=== PATIENT | male | born 1985 | race Asian ===

== ENCOUNTER 2018-04-01 10:38 | Day surgery (SDC) | payer OTHER ==
[2018-04-01 11:27] VITALS: BMI 31.4
--- NOTE | 2018-04-01 11:53 | PDOC ---
History of Present Illness - General Chief Complaint: Dialysis Shunt Problem Stated Complaint: POSSIBLE BLOOD CLOT FROM THE FISHLER Time Seen by Provider: 04/01/18 11:51 History Source: Patient Exam Limitations: No Limitations - History of Present Illness Initial Comments: 04/01/18 11:52 33YOM with h/o ESRD on HD (since 2013, now T//Sun, no missed treatments), AV fistula placement 5 years ago, right forearm angioplasty and AV graft placement , IDDM, HTN, HLD, gout, anemia, who p/w painful right forearm AV fistula since it was accessed on Sunday for his normal dialysis, acutely worsened last night and now with right 4th and 5th finger tingling. He states at the HD clinic , they had to use four different needles to access it because they kept becoming clogged with blood clot, and he was told the AV fistula may be clotted off and need a procedure. He was going to follow up with Dr. Watson today and was instructed to come into the ED for this. He notes only increased pain overlying the right forearm AV fistula site, no warmth/swelling/redness, no f/c/ n/v/d/c, chest pain, SOB, abdominal pain, headache, lightheadedness, vertigo, or other symptoms. Past History - Past Medical History Allergies/Adverse Reactions: Allergies Allergy/AdvReac Type Severity Reaction Status Date / Time No Known Allergies Allergy Verified 11/02/14 07:35 Home Medications: Ambulatory Orders Insulin Aspart [Novolog] unit SQ TID 06/30/13 Aspirin [ASA -] 81 mg PO DAILY #30 tab.chew 07/03/13 Insulin (Levemir) [Levemir Flexpen -] 6 units SQ HS #1 pen 07/03/13 Nifedipine [Procardia Xl] 60 mg PO BID 12/23/13 Losartan Potassium 50 mg PO HS 08/23/14 Metoprolol Succinate [Toprol XL -] 50 mg PO BID 08/23/14 Anemia: Yes Asthma: No Cancer: No Cardiac Disorders: No CVA: No COPD: No CHF: No Dementia: No Diabetes: Yes Dialysis: Yes (m,w,f) GI Disorders: No Disorders: No HTN: Yes Hypercholesterolemia: Yes Liver Disease: No Seizures: No Thyroid Disease: No - Surgical History Abdominal Surgery: No Appendectomy: No Cardiac Surgery: No Cholecystectomy: No Lung Surgery: No Neurologic Surgery: No Orthopedic Surgery: No - Family Disease History Family Disease History: Diabetes: Father (cva), Heart Disease: Father, Mother ( htn), Other: Father - Suicide/Smoking/Psychosocial Hx Smoking Status: No Smoking History: Never smoked Have you smoked in the past 12 months: No Number of Cigarettes Smoked Daily: 0 Hx Alcohol Use: No Drug/Substance Use Hx: No Substance Use Type: None Hx Substance Use Treatment: No Review of Systems - Review of Systems Able to Perform ROS?: Yes Comments:: 04/01/18 12:08 GEN: no fever, chills, malaise, generalized weakness, or weight change HEENT: no ear pain, sore throat, vision change, or eye pain CV: no chest pain, palpitations, lightheadedness, syncope, or edema RESP: no cough, wheezing, or SOB GI: no abdominal pain, nausea, vomiting, diarrhea, constipation, or white/black/ bloody stool : no dysuria, hematuria, incontinence, retention, bleeding, or discharge MSK: right forearm pain to AV fistula, no neck/back pain, muscle weakness/pain, or joint swelling/pain NEURO: right 4th and 5th finger tingling, no headache, seizure, vertigo, numbness, tingling, or focal weakness PSYCH: no substance use, no behavior change SKIN: no jaundice, no rash ROS otherwise negative except as noted in HPI *Physical Exam - Vital Signs Last Vital Signs Temp Pulse Resp BP Pulse Ox 98.1 F 81 18 150/93 100 04/01/18 11:25 04/01/18 11:25 04/01/18 11:25 04/01/18 11:25 04/01/18 11:25 - Physical Exam Comments: 04/01/18 13:29 GENERAL: well-appearing, A/Ox4, no distress, answers questions appropriately HEENT: PERRLA, EOMI, moist mucous membranes NECK/BACK: no midline ttp, no spinal stepoff or deformity, no hematoma, full ROM , neck supple CARDIOVASCULAR: AV fistula sites in right forearm with bruit and thrill but the proximal site has decreased bruit and thrill relative to the distal one, also AV fistula site just proximal to right wrist with good bruit and thrill, AV graft distal third of right forearm, otherwise heart regular rate/rhythm, normal S1S2, no MGR, strong peripheral pulses, capillary refill <2 seconds, extremities wwp, no edema LUNGS/RESPIRATORY: no respiratory distress, CTAB GI/ABDOMEN: symmetric [id number], normoactive BS, soft, no ttp, no midline pulsatile masses : no CVA tenderness EXTREMITIES: no muscle atrophy, no acute deformity SKIN: warm and dry, no pallor, no jaundice, no rash, no bruising, no skin breakdown, no cuts, no lesions NEUROLOGICAL: GCS 15, CN II-XII grossly intact, 5/5 strength proximally and distally, no facial droop Moderate Sedation - Procedure Monitoring Vital Signs: Procedure Monitoring Vital Signs Temperature 98.1 F 04/01/18 11:25 Pulse Rate 81 04/01/18 11:25 Respiratory Rate 18 04/01/18 11:25 Blood Pressure 150/93 04/01/18 11:25 O2 Sat by Pulse Oximetry (%) 100 04/01/18 11:25 ED Treatment Course - LABORATORY CBC & Chemistry Diagram: 04/01/18 13:05 04/01/18 13:05 Medical Decision Making - Medical Decision Making 04/01/18 18:[address] Watson. He will take the patient to the OR [facility]. Decision to Admit order placed to Dr. Watson per his request to [facility]. EKG and retype is ordered. *DC/Admit/Observation/Transfer Diagnosis at time of Disposition: AV fistula stenosis Qualifiers: Encounter type: initial encounter Qualified Code(s): T82.858A - Stenosis of other vascular prosthetic devices, implants and grafts, initial encounter - Discharge Dispostion Condition at time of disposition: Guarded Decision to Admit order: Yes - Referrals Referrals: Cori Morrison MD [Primary Care Provider] - - Patient Instructions - Post Discharge Activity
[2018-04-01 13:16] LABS: BASO % 1.1 % (0-2.0); EOS % 4.5 % (0-4.5); HEMATOCRIT 36.3 % (35.4-49); HEMOGLOBIN 12.4 GM/dL (11.7-16.9); LYMPH % 28.5 % (8-40); MCH 26.1 pg (25.7-33.7); MCHC 34.1 g/dl (32.0-35.9); MEAN CELL VOLUME 76.5 fl (80-96); MONO % 7.3 % (3.8-10.2); NEUT % 58.6 % (42.8-82.8); PLATELET COUNT 171 K/MM3 (134-434); RBC 4.75 M/mm3 (4.00-5.60); RDW 14.9 % (11.9-15.9); WHITE BLOOD COUNT 8.5 K/mm3 (4.0-10.0)
[2018-04-01 13:40] LABS: INR 0.9 (0.83-1.09); PROTHROMBIN TIME (PATIENT) 10.6 SEC (9.7-13.0)
[2018-04-01 13:43] LABS: ACTIVATED PTT 32.1 SECONDS (25.2-36.5)
[2018-04-01 14:42] LABS: ALK PHOS 144 U/L (45-117); ANION GAP 12 MMOL/L (8-16); BILIRUBIN,TOTAL 0.4 mg/dL (0.2-1); BLOOD UREA NITROGEN 83 mg/dL (7-18); CALCIUM 8.9 mg/dL (8.5-10.1); CHLORIDE 101 mmol/L (98-107); CO2 23 mmol/L (21-32); GLUCOSE,RANDOM 174 mg/dL (74-106); POTASSIUM 5.4 mmol/L (3.5-5.1); SGOT/AST 8 U/L (15-37); SGPT/ALT 28 U/L (13-61); SODIUM 136 mmol/L (136-145); TOT PROT 8.3 g/dl (6.4-8.2)
[2018-04-01 15:27] LABS: CREATININE 16.3 mg/dL (0.55-1.3)
--- NOTE | 2018-04-01 15:48 | CONSULT ---
- Consultation REQUESTING PROVIDER: CONSULT REQUEST: We have been asked to surgically evaluate this patient for clotted AV fistula. PCP: HISTORY OF PRESENT ILLNESS: 33YOM with ESRD on HD (since 2013, , last HD monday 02/27), AV fistula placement 5 years ago, right forearm angioplasty and AV graft placement, IDDM, HTN, HLD, gout, anemia, who p/w progressive pain in right forearm AV fistula since it was accessed on Sunday after his normal dialysis session. Patient states the pain acutely worsened last night and coupled with right 4th and 5th finger tingling. He states at the HD clinic, they had to use four different needles to gain access because they kept becoming clogged with blood clots. He was told to follow up with his vascular surgeon and Dr Watson's office told him to come into the ED for evaluation. He notes only increased pain overlying the right forearm AV fistula site, no warmth/swelling/redness. He denies any chest pain, SOB, fever, chills, abdominal pain, headache, lightheadedness, vertigo, or other symptoms associated with the onset. Of note: patient states in anticipation for this admission, he has had anything by mouth other than sips with his medications since last night. PMHx ESRD on HD Gout Anemia: Yes Asthma: No Cancer: No Cardiac Disorders: No CVA: No COPD: No CHF: No Dementia: No Diabetes: Yes Dialysis: Yes (m,w,f) GI Disorders: No Disorders: No HTN: Yes Hypercholesterolemia: Yes Liver Disease: No Seizures: No Thyroid Disease: No PSHx Abdominal Surgery: No Appendectomy: No Cardiac Surgery: No Cholecystectomy: No Lung Surgery: No Neurologic Surgery: No Orthopedic Surgery: No Home Medications Medication Instructions Recorded Insulin Aspart [Novolog] unit SQ TID 06/30/13 Aspirin [ASA -] 81 mg PO DAILY #30 tab.chew 07/03/13 Insulin (Levemir) [Levemir Flexpen 6 units SQ HS #1 pen 07/03/13 -] Nifedipine [Procardia Xl] 60 mg PO BID 12/23/13 Losartan Potassium 50 mg PO HS 08/23/14 Metoprolol Succinate [Toprol XL -] 50 mg PO BID 08/23/14 Allergies Allergy/AdvReac Type Severity Reaction Status Date / Time No Known Allergies Allergy Verified 11/02/14 07:35 REVIEW OF SYSTEMS: CONSTITUTIONAL: Absent: fever, chills, diaphoresis, generalized weakness, malaise, loss of appetite, weight change CARDIOVASCULAR: Absent: chest pain, syncope, palpitations, irregular heart rate, lightheadedness , peripheral edema RESPIRATORY: Absent: cough, shortness of breath, dyspnea with exertion, wheezing, stridor, hemoptysis GASTROINTESTINAL: Absent: abdominal pain, abdominal distension, nausea, vomiting, diarrhea, constipation, melena, hematochezia GENITOURINARY: Absent: dysuria, frequency, urgency, hesitancy, hematuria, flank pain, genital pain MUSCULOSKELETAL: Absent: myalgia, arthralgia, joint swelling, back pain, neck pain, +right UE pain SKIN: Absent: rash, itching, pallor HEMATOLOGIC/IMMUNOLOGIC: Absent: easy bleeding, easy bruising, lymphadenopathy NEUROLOGIC: Absent: headache, focal weakness, paresthesias, dizziness, unsteady gait, seizure, mental status changes, bladder or bowel incontinence PSYCHIATRIC: Absent: anxiety, depression, suicidal or homicidal ideation, hallucinations. PHYSICAL EXAM: GENERAL: Awake, alert, and fully oriented, in no acute distress. HEAD: Normal with no signs of trauma. EYES: sclera anicteric, conjunctiva clear. NECK: Normal ROM, supple without lymphadenopathy, JVD, or masses. LUNGS: No auditory wheezes, No accessory muscle use, unlabored resp on RA. MUSCULOSKELETAL: moving all extremities without limitation. UPPER EXTREMITIES: Right UE forearm with well healed scars from AVF- access sites from dialysis noted, no erythema or edema. palpable thrill and bruit but the proximal site has decreased bruit and thrill relative to the distal one, also AV fistula site just proximal to right wrist with good bruit and thrill, AV graft distal third of right forearm, 2+ pulses, warm, well-perfused. No cyanosis. Cap refill <2 seconds. No peripheral edema. Left UE 2+ pulses, warm, well-perfused. No cyanosis. Cap refill <2 seconds. NEUROLOGICAL: Normal speech, gait not observed. PSYCH: Cooperative. Good eye contact. Appropriate mood and affect. SKIN: Warm, dry, normal turgor, no rashes or lesions noted. Vital Signs Temperature 98.1 F 04/01/18 11:25 Pulse Rate 81 04/01/18 11:25 Respiratory Rate 18 04/01/18 11:25 Blood Pressure 150/93 04/01/18 11:25 O2 Sat by Pulse Oximetry (%) 100 04/01/18 11:25 Lab Results WBC 8.5 K/mm3 (4.0-10.0) 04/01/18 13:05 RBC 4.75 M/mm3 (4.00-5.60) 04/01/18 13:05 Hgb 12.4 GM/dL (11.7-16.9) 04/01/18 13:05 Hct 36.3 % (35.4-49) 04/01/18 13:05 MCV 76.5 fl (80-96) L 04/01/18 13:05 MCHC 34.1 g/dl (32.0-35.9) 04/01/18 13:05 RDW 14.9 % (11.9-15.9) 04/01/18 13:05 Plt Count 171 K/MM3 (134-434) D 04/01/18 13:05 Sodium 136 mmol/L (136-145) 04/01/18 13:05 Potassium 5.4 mmol/L (3.5-5.1) H 04/01/18 13:05 Chloride 101 mmol/L (98-107) 04/01/18 13:05 Carbon Dioxide 23 mmol/L (21-32) 04/01/18 13:05 Anion Gap 12 MMOL/L (8-16) 04/01/18 13:05 BUN 83 mg/dL (7-18) H 04/01/18 13:05 Random Glucose 174 mg/dL (74-106) H 04/01/18 13:05 Calcium 8.9 mg/dL (8.5-10.1) 04/01/18 13:05 INR 0.90 (0.83-1.09) 04/01/18 13:05 Duplex report pending Problem List - Problems (1) Dialysis AV fistula malfunction Assessment/Plan: 33yo with malfunction of right AVF. 1) F/u duplex report 2) NPO for OR today, Venogram possible venoplasty 3) DVT and GI prophylaxis 4) Medical optimization 5) Pain control Evaluation and plan discussed with Dr Watson Code(s): T82.590A - [facility] COMPL OF SURGICALLY CREATED ARTERIOVENOUS FISTULA, INIT
--- NOTE | 2018-04-01 17:25 | PDOC ---
Attending Attestation - Resident Resident Name: JuliAnamaria - ED Attending Attestation I have performed the following: I have examined & evaluated the patient, The case was reviewed & discussed with the resident, I agree w/resident's findings & plan - HPI HPI: 04/01/18 17:22 The patient is a 33 year old male with a PMH of ESRD ( HD on T//Sun\), AV fistula placed 5 years ago, right forearm angioplasty and AV graft placement, IDDM, HTN, HLD, gout, anemia presents to the ER with pain to his AV fistula on the right forearm for the past 2 days, which worsened overnight. Patient also endorses tingling to the 4th and 5th digits. Patient reports the HD clinic had difficulty accessing the AV fistula on 03/30 and was told to come to the ER today to be evaluated by Dr. Watson, vascular. Patient denies any other symptoms. Patient denies any swelling, redness, fever, chills, nausea, vomiting, chest pain, shortness of breath or any other symptoms. Allergies: NKA Past surgical history: None reported. Social history: No reported alcohol, drug or cigarette use. PCP: Dr. Morrison - Physicial Exam PE: 04/01/18 17:22 NAD, well appearing, PERRL, EOMI, MMM, nl conjunctiva, anicteric; neck supple. lungs clear, RRR, abdomen soft nontender. CERDA x4, no focal neuro deficits. No peripheral edema. normal color for ethnicity, WWP. Right forearm AV fistula, with palp thrill. 2+ radialis pulses. - Medical Decision Making 04/01/18 17:23 hpi as documented, VS wnl preop labs ordered, ESRD noted. ddx. AV fistula stenosis, obstruction, thrombosis, failure vascular surg cs with Dr Watson team, may warrant admit for venogram and surgical fixation, with similar prior presentation for failed AV fistula. duplex AV fistula ordered, AVF patent, but focal narrowing of draining vein adjacent to elbow. dispo: admit for vascular eval/intervention for suspected stenosis of AVF. 04/01/18 18:04 04/01/18 18:04
[2018-04-01] MEDS ORDERED: LIDOCAINE HCL 1%, 10 MG/ML (50 mL VIAL) IJ ONE (19:47)
--- NOTE | 2018-04-01 20:04 | OP ---
Operative Note - Note: Operative Date: 04/01/18 Pre-Operative Diagnosis: Stenosis AV fistula Operation: Venogram and venoplasty AV fistula right arm Findings: Stenosis of distal AVF in stent Post-Operative Diagnosis: Same as Pre-op Surgeon: Randolph Watson Anesthesiologist/RECOVERY COLLECTOR: Leia Lemon Anesthesia: Fractional
[2018-04-01] MEDS ORDERED: ACETAMINOPHEN 325 MG TABLET (FP) PO PRN (20:05)
[2018-04-01 20:47] VITALS: BP 150/90; PULSE 82; TEMP 98
--- NOTE | 2018-04-02 15:06 | EKG ---
Test Reason : Blood Pressure : / mmHG Vent. Rate : 072 BPM Atrial Rate : 072 BPM P-R Int : 162 ms QRS Dur : 116 ms QT Int : 388 ms P-R-T Axes : 037 020 053 degrees QTc Int : 424 ms NORMAL SINUS RHYTHM NORMAL ECG WHEN COMPARED WITH ECG OF 02-NOV-2014 08:19, NO SIGNIFICANT CHANGE WAS FOUND Confirmed by Reynaldo Gonzalez MD ([id number]) on 04/02/2018 3:06:20 PM Referred By: Confirmed By:Reynaldo Gonzalez MD
--- NOTE | 2018-04-07 16:11 | OP ---
DATE OF OPERATION: 04/01/2018 SURGEON: Randolph Lamar MD PROCEDURE: Venogram and venoplasty of right arm arteriovenous fistula. PREOPERATIVE DIAGNOSIS: Stenosis of arteriovenous fistula. POSTOPERATIVE DIAGNOSIS: Stenosis of arteriovenous fistula. ANESTHESIA: Fractional. ANESTHESIOLOGIST: Leia Lemon MD OPERATIVE FINDINGS: A radiocephalic fistula was present in the right arm. There was a stent in the distal portion of the fistula with an 80% stenosis. OPERATIVE PROCEDURE: Following routine patient identification with side and site verification, intravenous sedation was established. The right arm was prepped with ChloraPrep. Timeout was performed. Using Duplex ultrasound, a micropuncture needle was placed into the cephalic vein directly distally. A wire was passed distally in the vein, and the needle was exchanged for a 5-Georgian catheter. The catheter was then exchanged over the wire for a 5-Georgian sheath. An angle-tip wire and catheter were then advanced distally to the arteriovenous anastomosis, and a venogram was obtained revealing the stenosis in the distal vein. A 7 mm x 60 mm angioplasty balloon was then advanced over the wire and used to dilate the distal vein and stent. Repeat imaging revealed resolution of the area of the stenosis with improved flow. The wire and sheath were removed, and bleeding controlled at the exit site with a mattress suture of 3-0 nylon. A sterile dressing was applied, and the patient was taken to the recovery room in stable condition. RANDOLPH LAMAR M.D. [id number]
== END 2018-04-01 20:45 | disposition home or self-care (01) ==
LOC: JER 10:38 → JASUSAT 18:25 → J7W 20:42 → JASUSAT 20:45
PROVIDERS: ATTEND Surgery
PROC: 057D3ZZ Dilation of Right Cephalic Vein, Percutaneous Approach (ICD-10-PCS; principal; 2018-04-01 17:30)
DX: T82.858A Stenosis of other vascular prosthetic devices, implants and grafts, initial encounter (principal); I12.0 Hypertensive chronic kidney disease with stage 5 chronic kidney disease or end stage renal disease; E13.22 Other specified diabetes mellitus with diabetic chronic kidney disease; N18.6 End stage renal disease; Z99.2 Dependence on renal dialysis; Z79.4 Long term (current) use of insulin
CPT/HCPCS: 36415; 76000-TC-FY; 80053; 85025; 85610; 85730; 86850; 86900; 86901; 93005; 93010; 93931; 94760; 99283-25